=== PATIENT | male | born 1990 | race American Indian/Alaskan Native ===

== ENCOUNTER 2018-04-27 01:17 | Emergency (ER) | payer SELFPAY ==
[2018-04-27] MEDS ORDERED: ASPIRIN PO ONE (01:52)
[2018-04-27 02:16] LABS: Basophils % (Auto) 0.3 % (0.0-1.8); Eosinophils # (Auto) 0.1 K/mm3 (0.0-0.4); Eosinophils % (Auto) 2.1 % (0.0-4.3); Hematocrit 42.9 % (35.5-45.6); Hemoglobin 14.7 gm/dl (11.8-15.2); Lymphocytes # (Auto) 1.6 K/mm3 (1.2-5.4); Lymphocytes % (Auto) 32.6 % (13.4-35.0); Mean Corpuscular HGB Conc 34 % (32-34); Mean Corpuscular Hemoglobin 31 pg (28-32); Mean Corpuscular Volume 90 fl (84-94); Monocytes # (Auto) 0.4 K/mm3 (0.0-0.8); Monocytes % (Auto) 8.3 % (0.0-7.3); Platelet Count 287 K/mm3 (140-440); Red Blood Count 4.78 M/mm3 (3.65-5.03); Red Cell Distribution Width 13.1 % (13.2-15.2)
[2018-04-27 02:43] LABS: BUN/Creatinine Ratio 13; Blood Urea Nitrogen 12 mg/dL (9-20); Calcium 9.2 mg/dL (8.4-10.2); Hemolysis Index 6
[2018-04-27 03:45] VITALS: BP 135/80
--- NOTE | 2018-04-27 03:53 | Emergency Department Report ---
HPI - General Chief Complaint: Chest Pain Time Seen by Provider: 04/27/18 03:52 - HPI HPI: The patient is 27-year-old male presents for evaluation of chest pain. The patient reports left-sided chest pain for the past month, moderate in severity, sharp in quality, exacerbated with movement the left arm at the shoulder joint. The patient denies Trauma to the chest, neck, or left shoulder, fever, neck pain , parasthesias, dyspnea, cough, hemoptysis, palpitations, dizziness, syncope, unilateral leg swelling, calf muscle pain. Patient also denies cocaine or other stimulant use, history of DVT or PE, recent immobilization, or history of cancer. ED Past Medical Hx - Past Medical History Previous Medical History?: No - Surgical History Past Surgical History?: No - Social History Smoking Status: Current Every Day Smoker Substance Use Type: None - Medications Home Medications: Home Medications Medication Instructions Recorded Confirmed Last Taken Type Ibuprofen [Motrin] 800 mg PO Q8HR PRN #15 tablet 04/27/18 Unknown Rx traMADol [Ultram 50 MG tab] 50 mg PO Q6HR PRN #12 tablet 04/27/18 Unknown Rx ED Review of Systems ROS: Stated complaint: CHEST PAIN Other details as noted in HPI Constitutional: denies: fever ENT: denies: throat or neck pain Respiratory: denies: cough, shortness of breath Cardiovascular: reports: chest pain Endocrine: denies unexplained weight loss or gain Gastrointestinal: denies: abdominal pain, nausea Genitourinary: denies: dysuria Musculoskeletal: denies: leg swelling Skin: denies: rash Neurological: denies: headache Hematological/Lymphatic: denies: easy bleeding or easy bruising Psych: denies sadness or hopelessness Physical Exam - Physical Exam Vital Signs: Vital Signs 04/27/18 04/27/18 04/27/18 01:17 01:46 03:43 Temperature 98.4 F 97.9 F Pulse Rate 61 61 61 Respiratory 16 18 Rate Blood Pressure 134/65 134/65 Blood Pressure 135/80 [Left] O2 Sat by Pulse 97 100 99 Oximetry Physical Exam: General: well-nourished, well-developed, no acute distress Head: Normocephalic, atraumatic Eyes: normal sclera ENT: Mucous membranes are pink and moist Neck: trachea midline, neck supple, No neck stiffness, no cervical adenopathy Respiratory: Breath sounds equal bilaterally, no wheezing, rales, or rhonchi Cardio: S1 and S2 present, no murmurs, rubs, gallops, capillary refill is brisk Abdomen: Normoactive bowel sounds, soft abdomen, no rigidity, no guarding or rebound tenderness Chest WALL/Back: No tenderness to palpation of the chest wall, no CVA tenderness with percussion, chest pain reproduced with abduction and internal rotation of the left arm at the shoulder joint Musc: No pitting edema Skin: No rash Neuro: no facial drooping, normal speech Psych: Normal affect ED Course Vital Signs 04/27/18 04/27/18 04/27/18 01:17 01:46 03:43 Temperature 98.4 F 97.9 F Pulse Rate 61 61 61 Respiratory 16 18 Rate Blood Pressure 134/65 134/65 Blood Pressure 135/80 [Left] O2 Sat by Pulse 97 100 99 Oximetry ED Medical Decision Making - Lab Data Result diagrams: 04/27/18 01:56 04/27/18 01:56 - Medical Decision Making The patient was seen and examined by myself. The patient is placed on a court recording monitor and continuous pulse ox. On initial evaluation, the patient was found to be in no distress. EKG was negative for findings suggestive of acute cardiac infarct. Labs and imaging are obtained. The patient is given a tablet of Motrin for his pain. Chest x-ray is negative for pneumothorax, focal consolidation, pulmonary vascular congestion, pleural effusion, or other obvious acute cardiopulmonary disease process. Lab results were non-concerning including levels of troponin, WBC, hemoglobin, hematocrit, electrolytes, renal function. The patient was reevaluated and reported that their symptoms were markedly improved. As the patient has a KAREEN risk score less than 2, and a well's score less than 2, the patient is at low risk of ACS or pulmonary emboli etiology of their symptoms. The patient is stable for discharge with outpatient follow-up. The patient is given follow-up and return instructions. The patient expressed understanding and agreed with the plan. The patient is discharged in stable condition. Critical care attestation.: If time is entered above; I have spent that time in minutes in the direct care of this critically ill patient, excluding procedure time. ED Disposition Clinical Impression: Acute chest pain, Chest wall pain Disposition: - TO HOME OR SELFCARE Is pt being admited?: No Does the pt Need Aspirin: No Condition: Stable Instructions: Chest Pain (ED), Costochondritis (ED) Referrals: [facility] [Outside] - 3-5 Days Time of Disposition: 04:46
--- NOTE | 2018-04-27 04:21 | XRay Report ---
FINAL REPORT PROCEDURE: XR CHEST 1V AP TECHNIQUE: Chest radiograph anteroposterior view. CPT 89811 HISTORY: chest pain COMPARISON: No prior studies are available for comparison. FINDINGS: Heart: Normal. Mediastinum/Vessels: Normal. Lungs/Pleural space: Normal. Bony thorax: No acute osseous abnormality. Life support devices: None. IMPRESSION: No acute cardiopulmonary abnormality.
[2018-04-27] MEDS ORDERED: TORADOL IM ONE (04:46)
[2018-04-27] MEDS ORDERED: MOTRIN PO ONE (04:47)
== END 2018-04-27 04:55 | disposition home or self-care (01) ==
LOC: ED 01:17
DX: R07.89 Other chest pain (principal); F17.200 Nicotine dependence, unspecified, uncomplicated
CPT/HCPCS: 36415; 71045; 80048; 84484; 85025; 93005; 93010

== ENCOUNTER 2019-04-27 17:13 | Emergency (ER) | payer SELFPAY ==
--- NOTE | 2019-04-27 17:19 | Emergency Department Report ---
Blank Doc - Documentation Documentation: 28 y/o c/o of 2 day history of lower abdominal aching pain and nausea with aches and malaise. no diarrhea or constipation no trauma. Plan labs and urine. abdominal series
[2019-04-27 17:58] LABS: Hematocrit 47.9 % (35.5-45.6); Hemoglobin 16.4 gm/dl (11.8-15.2); Mean Corpuscular HGB Conc 34 % (32-34); Mean Corpuscular Volume 91 fl (84-94); Platelet Count 297 K/mm3 (140-440); Red Blood Count 5.24 M/mm3 (3.65-5.03); Red Cell Distribution Width 13.4 % (13.2-15.2)
--- NOTE | 2019-04-27 18:03 | XRay Report ---
PROCEDURE: XR ABD SERIES W CXR 1V TECHNIQUE: Abdomen, supine and upright views. Frontal chest, single view HISTORY: lower abdominal pain COMPARISONS: Frontal chest 04/27/2018 Slight spinal curvature with right apex at thoracolumbar junction. Clear lungs bilaterally. Normal cardiac silhouette size. Colonic fecal content is prominent from cecum to rectum which may reflect constipation. Nonspecific nonobstructive bowel gas pattern without intestinal distention. There is no definite pneumoperitoneum or abnormal air-fluid level on the upright views. No evidence of visceromegaly or mass. No radiographically visible calcification of urologic significance. IMPRESSION: Prominent stool from cecum to rectum may reflect constipation This document is electronically signed by Jamaal Mclaughlin MD., April 27 2019 06:01:30 PM ET
[2019-04-27 18:12] LABS: Alanine Aminotransferase 7 units/L (7-56); Albumin 4.6 g/dL (3.9-5); BUN/Creatinine Ratio 8; Blood Urea Nitrogen 7 mg/dL (9-20); Calcium 9.8 mg/dL (8.4-10.2); Hemolysis Index 5
[2019-04-27 19:45] LABS: Basophils % (Manual) 0 % (0.0-1.8); Total Cells Counted 100
[2019-04-27 19:46] LABS: RBC Morphology Normal
[2019-04-27 20:04] LABS: Bilirubin,Urine NEG (Negative); Blood,Urine SM (Negative); Color,Urine Yellow (Yellow); Mucus,Urine 1+ /HPF; Protein,Urine <15 mg/dL mg/dL (Negative); WBC,Urine < 1.0 /HPF (0.0-6.0)
[2019-04-27] MEDS ORDERED: ZOFRAN ODT PO ONE (20:07)
--- NOTE | 2019-04-27 20:12 | Emergency Department Report ---
ED Abdominal Pain HPI - General Chief Complaint: Abdominal Pain Stated Complaint: BODY PAIN Time Seen by Provider: 04/27/19 17:17 Source: patient Mode of arrival: Ambulatory Limitations: No Limitations - History of Present Illness Initial Comments: 28 y/o c/o of 2 day history of lower abdominal aching pain and nausea with aches and malaise. no diarrhea or constipation no trauma. pain is 4/10 nagging started after eating chicken from [place] [employer] 2 days ago there is no fever no chills no cp no sob. pt is tolerating po intake Complaint: abdominal pain Onset/Timin -: days(s) Location: periumbilical Radiation: LLQ Migration to: LLQ Severity: moderate Severity scale (0 -10): 3 Quality: cramping Consistency: intermittent Improves With: nothing Worsens With: movement Associated Symptoms: nausea, constipation. denies: vomiting, diarrhea, dysuria, melena - Related Data Previous Rx's Medication Instructions Recorded Last Taken Type Ibuprofen [Motrin] 800 mg PO Q8HR PRN #15 tablet 04/27/18 Unknown Rx traMADol [Ultram 50 MG tab] 50 mg PO Q6HR PRN #12 tablet 04/27/18 Unknown Rx Bisacodyl [Dulcolax suppos] 10 mg SD QDAY PRN #5 supp.rect 04/27/19 Unknown Rx Polyethylene Glycol 3350 [Miralax 17 gm PO BID PRN #14 packet 04/27/19 Unknown Rx 3350] Allergies Allergy/AdvReac Type Severity Reaction Status Date / Time No Known Allergies Allergy Verified 04/27/19 17:14 ED Review of Systems ROS: Stated complaint: BODY PAIN Other details as noted in HPI Constitutional: denies: chills, fever Eyes: denies: eye pain, eye discharge, vision change ENT: denies: ear pain, throat pain Respiratory: denies: cough, shortness of breath, wheezing Cardiovascular: denies: chest pain, palpitations Endocrine: no symptoms reported Gastrointestinal: abdominal pain, nausea, constipation. denies: vomiting, diarrhea, hematemesis, melena, hematochezia Genitourinary: denies: urgency, dysuria Musculoskeletal: denies: back pain, joint swelling, arthralgia Skin: denies: rash, lesions Neurological: denies: headache, weakness, paresthesias Psychiatric: denies: anxiety, depression Hematological/Lymphatic: denies: easy bleeding, easy bruising ED Past Medical Hx - Past Medical History Previous Medical History?: No - Surgical History Past Surgical History?: No - Social History Smoking Status: Current Every Day Smoker Substance Use Type: Alcohol - Medications Home Medications: Home Medications Medication Instructions Recorded Confirmed Last Taken Type Ibuprofen [Motrin] 800 mg PO Q8HR PRN #15 tablet 04/27/18 Unknown Rx traMADol [Ultram 50 MG tab] 50 mg PO Q6HR PRN #12 tablet 04/27/18 Unknown Rx Bisacodyl [Dulcolax suppos] 10 mg SD QDAY PRN #5 supp.rect 04/27/19 Unknown Rx Polyethylene Glycol 3350 [Miralax 17 gm PO BID PRN #14 packet 04/27/19 Unknown Rx 3350] ED Physical Exam - General Limitations: No Limitations General appearance: alert, in no apparent distress - Head Head exam: Present: atraumatic, normocephalic - Eye Eye exam: Present: normal appearance, PERRL, EOMI Pupils: Present: normal accommodation - ENT ENT exam: Present: mucous membranes moist - Neck Neck exam: Present: normal inspection - Respiratory Respiratory exam: Present: normal lung sounds bilaterally. Absent: respiratory distress, wheezes, stridor, chest wall tenderness - Cardiovascular Cardiovascular Exam: Present: regular rate, normal rhythm, normal heart sounds. Absent: systolic murmur, diastolic murmur, rubs, gallop - GI/Abdominal GI/Abdominal exam: Present: distended, tenderness (mild tenderness periumbilical firm no rebound no guarding ), normal bowel sounds. Absent: guarding, rebound, rigid, bruit, hernia - Rectal Rectal exam: Present: deferred - Extremities Exam Extremities exam: Present: normal inspection - Back Exam Back exam: Present: normal inspection, full ROM. Absent: tenderness, CVA tenderness (R), rash noted - Neurological Exam Neurological exam: Present: alert, oriented X3, CN II-XII intact, normal gait, reflexes normal - Psychiatric Psychiatric exam: Present: normal affect, normal mood - Skin Skin exam: Present: warm, dry, intact, normal color. Absent: rash ED Course Vital Signs 04/27/19 04/27/19 17:18 17:36 Temperature 98.4 F 98.5 F Pulse Rate 71 71 Respiratory 16 18 Rate Blood Pressure 134/90 Blood Pressure 134/90 [Left] O2 Sat by Pulse 100 98 Oximetry ED Medical Decision Making - Lab Data Result diagrams: 04/27/19 17:34 04/27/19 17:34 Lab Results 04/27/19 04/27/19 04/27/19 Range/Units 17:34 17:34 19:30 WBC 5.2 (4.5-11.0) K/mm3 RBC 5.24 H (3.65-5.03) M/mm3 Hgb 16.4 H (11.8-15.2) gm/dl Hct 47.9 H (35.5-45.6) % MCV 91 (84-94) fl MCH 31 (28-32) pg MCHC 34 (32-34) % RDW 13.4 (13.2-15.2) % Plt Count 297 (140-440) K/mm3 Add Manual Diff Complete Total Counted 100 Seg Neuts % (Manual) 49.0 (40.0-70.0) % Band Neutrophils % 0 % Lymphocytes % (Manual) 38.0 H (13.4-35.0) % Reactive Lymphs % (Man) 0 % Monocytes % (Manual) 10.0 H (0.0-7.3) % Eosinophils % (Manual) 3.0 (0.0-4.3) % Basophils % (Manual) 0 (0.0-1.8) % Metamyelocytes % 0 % Myelocytes % 0 % Promyelocytes % 0 % Blast Cells % 0 % Nucleated RBC % Not Reportable Seg Neutrophils # Man 2.5 (1.8-7.7) K/mm3 Band Neutrophils # 0.0 K/mm3 Lymphocytes # (Manual) 2.0 (1.2-5.4) K/mm3 Abs React Lymphs (Man) 0.0 K/mm3 Monocytes # (Manual) 0.5 (0.0-0.8) K/mm3 Eosinophils # (Manual) 0.2 (0.0-0.4) K/mm3 Basophils # (Manual) 0.0 (0.0-0.1) K/mm3 Metamyelocytes # 0.0 K/mm3 Myelocytes # 0.0 K/mm3 Promyelocytes # 0.0 K/mm3 Blast Cells # 0.0 K/mm3 WBC Morphology Not Reportable Hypersegmented Neuts Not Reportable Hyposegmented Neuts Not Reportable Hypogranular Neuts Not Reportable Smudge Cells Not Reportable Toxic Granulation Not Reportable Toxic Vacuolation Not Reportable Dohle Bodies Not Reportable Pelger-Huet Anomaly Not Reportable Humza Rods Not Reportable Platelet Estimate Appears normal Clumped Platelets Not Reportable Plt Clumps, EDTA Not Reportable Large Platelets Not Reportable Giant Platelets Not Reportable Platelet Satelliting Not Reportable Plt Morphology Comment Not Reportable RBC Morphology Normal Dimorphic RBCs Not Reportable Polychromasia Not Reportable Hypochromasia Not Reportable Poikilocytosis Not Reportable Anisocytosis Not Reportable Microcytosis Not Reportable Macrocytosis Not Reportable Spherocytes Not Reportable Pappenheimer Bodies Not Reportable Sickle Cells Not Reportable Target Cells Not Reportable Tear Drop Cells Not Reportable Ovalocytes Not Reportable Helmet Cells Not Reportable Yun-Barnum Bodies Not Reportable Laveen Rings Not Reportable Chi Cells Not Reportable Bite Cells Not Reportable Crenated Cell Not Reportable Elliptocytes Not Reportable Acanthocytes (Spur) Not Reportable Rouleaux Not Reportable Hemoglobin C Crystals Not Reportable Schistocytes Not Reportable Malaria parasites Not Reportable Jorge A Bodies Not Reportable Hem Pathologist Commnt No Sodium 143 (137-145) mmol/L Potassium 4.1 (3.6-5.0) mmol/L Chloride 104.8 (98-107) mmol/L Carbon Dioxide 27 (22-30) mmol/L Anion Gap 15 mmol/L BUN 7 L (9-20) mg/dL Creatinine 0.9 (0.8-1.5) mg/dL Estimated GFR > 60 ml/min BUN/Creatinine Ratio 8 % Glucose 72 L (75-100) mg/dL Calcium 9.8 (8.4-10.2) mg/dL Total Bilirubin 0.20 (0.1-1.2) mg/dL AST 17 (5-40) units/L ALT 7 (7-56) units/L Alkaline Phosphatase 83 (35-129) units/L Total Protein 7.9 (6.3-8.2) g/dL Albumin 4.6 (3.9-5) g/dL Albumin/Globulin Ratio 1.4 % Lipase 19 (13-60) units/L Urine Bilirubin Neg (Negative) Urine RBC (Auto) 4.0 (0.0-6.0) /HPF U Epithel Cells (Auto) < 1.0 (0-13.0) /HPF - Radiology Data Radiology results: report reviewed, image reviewed Ordering Physician: MADONNA VORA Date of Service: 04/27/19 Procedure(s): XR abd series w cxr 1V Accession Number(s): [id number] cc: MADONNA VORA Fluoro Time In Minutes: PROCEDURE: XR ABD SERIES W CXR 1V TECHNIQUE: Abdomen, supine and upright views. Frontal chest, single view HISTORY: lower abdominal pain COMPARISONS: Frontal chest 04/27/2018 Slight spinal curvature with right apex at thoracolumbar junction. Clear lungs bilaterally. Normal cardiac silhouette size. Colonic fecal content is prominent from cecum to rectum which may reflect constipation. Nonspecific nonobstructive bowel gas pattern without intestinal distention. There is no definite pneumoperitoneum or abnormal air-fluid level on the upright views. No evidence of visceromegaly or mass. No radiographically visible calcification of urologic significance. IMPRESSION: Prominent stool from cecum to rectum may reflect constipation This document is electronically signed by Jamaal Mclaughlin MD., April 27 2019 06:01:30 PM ET Transcribed By: ANGEL Dictated By: JAMAAL MCLAUGHLIN MD Electronically Authenticated By: JAMAAL MCLAUGHLIN MD Signed Date/Time: 04/27/19 180 DD/ 33 TD/TT: 04/27/19 173 - Medical Decision Making X-ray demonstrates a moderate constipation same thing. Physical exam shows patient is tolerating by mouth intake plan MiraLAX and Dulcolax suppository hydrate as directed follow with PCP in 3 days or return to ED should symptoms worsen patient is stable condition at this time Critical care attestation.: If time is entered above; I have spent that time in minutes in the direct care of this critically ill patient, excluding procedure time. ED Disposition Clinical Impression: Constipation Qualifiers: Constipation type: other constipation type Qualified Code(s): K59.09 - Other constipation Disposition: DC-01 TO HOME OR SELFCARE Is pt being admited?: No Does the pt Need Aspirin: No Condition: Stable Instructions: Constipation (ED), High Fiber Diet (ED) Prescriptions: Bisacodyl [Dulcolax suppos] 10 mg SD QDAY PRN #5 supp.rect PRN Reason: Constipation Polyethylene Glycol 3350 [Miralax 3350] 17 gm PO BID PRN #14 packet PRN Reason: Constipation Referrals: LEILANI RODRÍGUEZ MD [Primary Care Provider] - 3-5 Days Forms: Work/School Release Form(ED) Time of Disposition: 20:17
[2019-04-27 20:49] VITALS: BP 145/87
== END 2019-04-27 20:49 | disposition home or self-care (01) ==
LOC: ED 17:13
DX: K59.09 Other constipation (principal)
CPT/HCPCS: 36415; 74022; 80053; 81001; 83690; 85007; 85025; Q0162

== ENCOUNTER 2020-08-17 19:43 | Emergency (ER) | payer SELFPAY ==
[2020-08-17 20:13] VITALS: BP 165/88
--- NOTE | 2020-08-17 22:58 | Emergency Department Report ---
ED Lower Extremity HPI - General Chief Complaint: Extremity Injury, Lower Stated Complaint: LEFT LEG PAIN Time Seen by Provider: 08/17/20 22:35 Source: patient Mode of arrival: Ambulatory Limitations: No Limitations - History of Present Illness Initial Comments: 29-year-old male presents to ED with left knee pain. Patient states he had a "wild weekend" this past weekend. States he does not know if he fell or injured his knee, however he reports worsening since yesterday. States pain is mostly located in the medial aspect of the knee and radiates down into the leg. Patient is ambulatory. He denies any swelling. MD Complaint: knee injury -: days(s) (2) Injury: Knee: Left Type of Injury: unknown Severity: mild Improves With: immobilization Worsens With: weight bearing, palpation Context: other (Unknown) Associated Symptoms: ambulatory. denies: swelling - Related Data Previous Rx's Medication Instructions Recorded Last Taken Type Ibuprofen [Motrin] 800 mg PO Q8HR PRN #15 tablet 04/27/18 Unknown Rx traMADoL [Ultram 50 MG tab] 50 mg PO Q6HR PRN #12 tablet 04/27/18 Unknown Rx bisacodyL [Dulcolax suppos] 10 mg [place] QDAY PRN #5 supp.rect 04/27/19 Unknown Rx polyethylene glycoL 3350 [Miralax 17 gm PO BID PRN #14 packet 04/27/19 Unknown Rx 3350] Naproxen [Naprosyn] 500 mg PO BID #20 tablet 08/17/20 Unknown Rx Allergies Allergy/AdvReac Type Severity Reaction Status Date / Time No Known Allergies Allergy Verified 04/27/19 17:14 ED Review of Systems ROS: Stated complaint: LEFT LEG PAIN Other details as noted in HPI Comment: All other systems reviewed and negative Musculoskeletal: as per HPI Neurological: denies: weakness, numbness, paresthesias ED Past Medical Hx - Past Medical History Previous Medical History?: No - Surgical History Past Surgical History?: No - Social History Smoking Status: Never Smoker Substance Use Type: Alcohol - Medications Home Medications: Home Medications Medication Instructions Recorded Confirmed Last Taken Type Ibuprofen [Motrin] 800 mg PO Q8HR PRN #15 tablet 04/27/18 Unknown Rx traMADoL [Ultram 50 MG tab] 50 mg PO Q6HR PRN #12 tablet 04/27/18 Unknown Rx bisacodyL [Dulcolax suppos] 10 mg NV QDAY PRN #5 supp.rect 04/27/19 Unknown Rx polyethylene glycoL 3350 [Miralax 17 gm PO BID PRN #14 packet 04/27/19 Unknown Rx 3350] Naproxen [Naprosyn] 500 mg PO BID #20 tablet 08/17/20 Unknown Rx ED Physical Exam - General Limitations: No Limitations General appearance: alert, in no apparent distress - Head Head exam: Present: atraumatic, normocephalic - Eye Eye exam: Present: normal appearance, EOMI - ENT ENT exam: Present: mucous membranes moist - Neck Neck exam: Present: normal inspection - Respiratory Respiratory exam: Absent: respiratory distress - Cardiovascular Cardiovascular Exam: Present: regular rate, normal rhythm - GI/Abdominal GI/Abdominal exam: Absent: distended - Extremities Exam Extremities exam: Present: other (Tenderness to the medial aspect of the left knee; no deformity or swelling present; joint is stable; range of motion intact) - Neurological Exam Neurological exam: Present: alert, oriented X3. Absent: motor sensory deficit - Psychiatric Psychiatric exam: Present: normal affect, normal mood - Skin Skin exam: Present: warm, dry, intact, normal color ED Course Vital Signs 08/17/20 20:13 Temperature 98.3 F Pulse Rate 89 Respiratory 17 Rate Blood Pressure 165/88 O2 Sat by Pulse 97 Oximetry ED Lower Extremity MDM - Medical Decision Making 29-year-old male with likely injury to his left knee while he was intoxicated. Patient is ambulatory. There is slight tenderness to the medial aspect of the knee, however there is no deformity, swelling, bruising present. Patient will be given an Erick wrap. This is likely a sprain. Patient will be discharged with anti-inflammatories. Outpatient follow-up advised. Return precautions given. - Differential Diagnosis Knee sprain Critical care attestation.: If time is entered above; I have spent that time in minutes in the direct care of this critically ill patient, excluding procedure time. ED Disposition Clinical Impression: Left knee sprain Disposition: - TO HOME OR SELFCARE Is pt being admited?: No Condition: Stable Instructions: Knee Sprain (ED) Prescriptions: Naproxen [Naprosyn] 500 mg PO BID #20 tablet Referrals: BRENDEN ROSEN MD [Staff Physician] - as needed Time of Disposition: 22:59
== END 2020-08-17 23:24 | disposition home or self-care (01) ==
LOC: ED 19:43
DX: S83.8X2A Sprain of other specified parts of left knee, initial encounter (principal); X58.XXXA Exposure to other specified factors, initial encounter; Y93.89 Activity, other specified; Y92.89 Other specified places as the place of occurrence of the external cause; Y99.8 Other external cause status
CPT/HCPCS: 99282

== ENCOUNTER 2021-02-08 10:41 | Emergency (ER) | payer BC ==
[2021-02-08 10:52] VITALS: BP 164/82
--- NOTE | 2021-02-08 12:18 | XRay Report ---
CHEST 2 VIEWS INDICATION: cough x2 weeks. COMPARISON: 04/27/2018 FINDINGS: Support devices: None. Heart: Within normal limits. Lungs/pleura: No acute air space or interstitial disease. No pneumothorax. Additional findings: None. IMPRESSION: Normal chest x-ray Signer Name: Roverto Lane Jr, MD Signed: 02/08/2021 12:14 PM Workstation Name: [id number]
--- NOTE | 2021-02-08 12:33 | Emergency Department Report ---
- General Chief Complaint: Upper Respiratory Infection Stated Complaint: CHEST PAIN Time Seen by Provider: 02/08/21 11:13 Source: patient Mode of arrival: Ambulatory Limitations: No Limitations - History of Present Illness Initial Comments: Patient is a 30-year-old male presents emergency room complaints of a dry cough that began 2 weeks ago. He states that he just stopped smoking approximately 2 weeks ago. He states he has chest discomfort after frequent coughing. He denies any fever, nausea, vomiting, diarrhea, shortness of breath, wheezing. He denies any sick contacts or recent travel. No past medical history. No allergies to medications. - Related Data Previous Rx's Medication Instructions Recorded Last Taken Type Ibuprofen [Motrin] 800 mg PO Q8HR PRN #15 tablet 04/27/18 Unknown Rx traMADoL [Ultram 50 MG tab] 50 mg PO Q6HR PRN #12 tablet 04/27/18 Unknown Rx bisacodyL [Dulcolax suppos] 10 mg SD QDAY PRN #5 supp.rect 04/27/19 Unknown Rx polyethylene glycoL 3350 [Miralax 17 gm PO BID PRN #14 packet 04/27/19 Unknown Rx 3350] Naproxen [Naprosyn] 500 mg PO BID #20 tablet 08/17/20 Unknown Rx Benzonatate [Tessalon Perles] 100 mg PO Q8HR PRN #12 capsule 02/08/21 Unknown Rx Loratadine [Claritin] 10 mg PO DAILY #10 tablet 02/08/21 Unknown Rx Prednisone [predniSONE 10 mg 10 mg PO .TAPER #1 tab.ds.pk 02/08/21 Unknown Rx (6-Day Pack, 21 Tabs)] Allergies Allergy/AdvReac Type Severity Reaction Status Date / Time No Known Allergies Allergy Verified 02/08/21 10:46 ED Review of Systems ROS: Stated complaint: CHEST PAIN Other details as noted in HPI Comment: All other systems reviewed and negative ED Past Medical Hx - Past Medical History Additional medical history: BRONCHITIS - Surgical History Past Surgical History?: No - Social History Smoking Status: Former Smoker Substance Use Type: Alcohol - Medications Home Medications: Home Medications Medication Instructions Recorded Confirmed Last Taken Type Ibuprofen [Motrin] 800 mg PO Q8HR PRN #15 tablet 04/27/18 Unknown Rx traMADoL [Ultram 50 MG tab] 50 mg PO Q6HR PRN #12 tablet 04/27/18 Unknown Rx bisacodyL [Dulcolax suppos] 10 mg SD QDAY PRN #5 supp.rect 04/27/19 Unknown Rx polyethylene glycoL 3350 [Miralax 17 gm PO BID PRN #14 packet 04/27/19 Unknown Rx 3350] Naproxen [Naprosyn] 500 mg PO BID #20 tablet 08/17/20 Unknown Rx Benzonatate [Tessalon Perles] 100 mg PO Q8HR PRN #12 capsule 02/08/21 Unknown Rx Loratadine [Claritin] 10 mg PO DAILY #10 tablet 02/08/21 Unknown Rx Prednisone [predniSONE 10 mg 10 mg PO .TAPER #1 tab.ds.pk 02/08/21 Unknown Rx (6-Day Pack, 21 Tabs)] ED Physical Exam - General Limitations: No Limitations General appearance: alert, in no apparent distress - Head Head exam: Present: atraumatic, normocephalic - Eye Eye exam: Present: normal appearance - ENT ENT exam: Present: mucous membranes moist - Respiratory Respiratory exam: Present: normal lung sounds bilaterally. Absent: respiratory distress, wheezes, rales, rhonchi, stridor, chest wall tenderness, accessory muscle use, decreased breath sounds, prolonged expiratory - Cardiovascular Cardiovascular Exam: Present: regular rate, normal rhythm, normal heart sounds. Absent: systolic murmur, diastolic murmur, rubs, gallop - Neurological Exam Neurological exam: Present: alert, oriented X3 - Psychiatric Psychiatric exam: Present: normal affect, normal mood - Skin Skin exam: Present: warm, dry, intact ED Course Vital Signs 02/08/21 10:51 Temperature 98.8 F Pulse Rate 76 Respiratory 20 Rate Blood Pressure 164/82 O2 Sat by Pulse 96 Oximetry ED Medical Decision Making - Radiology Data Radiology results: report reviewed Ordering Physician: MADONNA BRIGGS Date of Service: 02/08/21 Procedure(s): XR chest routine 2V Accession Number(s): [id number] cc: MADONNA BRIGGS Fluoro Time In Minutes: CHEST 2 VIEWS INDICATION: cough x2 weeks. COMPARISON: 04/27/2018 FINDINGS: Support devices: None. Heart: Within normal limits. Lungs/pleura: No acute air space or interstitial disease. No pneumothorax. Additional findings: None. IMPRESSION: Normal chest x-ray Signer Name: Roverto Lane Jr, MD Signed: 02/08/2021 12:14 PM Workstation Name: [id number] Transcribed By: TTR Dictated By: ROVERTO LANE JR, MD Electronically Authenticated By: ROVERTO LANE JR, MD Signed Date/Time: 02/08/21 121 DD/ 1213 TD/TT: - Medical Decision Making Patient is a 30-year-old male presents emergency room complaints of a dry cough that began 2 weeks ago. He states that he just stopped smoking approximately 2 weeks ago. He states he has chest discomfort after frequent coughing. He denies any fever, nausea, vomiting, diarrhea, shortness of breath, wheezing. He denies any sick contacts or recent travel. No past medical history. No allergies to medications. Vitals are stable. Breath sounds are clear bilaterally, no wheezing, no rales, no rhonchi. Chest x-ray: Normal chest x- ray. Patient has no clinical signs of bacterial pneumonia or bacterial bronchitis, no fever, no shortness of breath, no abnormal lung sounds, chest x- ray is clear, he has no productive cough. Patient can prescription for Claritin, prednisone, Tessalon Perles. Advised patient Please take medication as prescribed. Please follow-up with your primary care doctor. Return to emergency room for any worsening symptoms. Please do not smoke. Critical care attestation.: If time is entered above; I have spent that time in minutes in the direct care of this critically ill patient, excluding procedure time. ED Disposition Clinical Impression: URI (upper respiratory infection) Qualifiers: URI type: unspecified URI Qualified Code(s): J06.9 - Acute upper respiratory infection, unspecified Disposition: DC-01 TO HOME OR SELFCARE Is pt being admited?: No Does the pt Need Aspirin: No Condition: Stable Instructions: Upper Respiratory Infection, Adult Additional Instructions: Please take medication as prescribed. Please follow-up with your primary care doctor. Return to emergency room for any worsening symptoms. Please do not smoke. Your chest x-ray is normal Prescriptions: Loratadine [Claritin] 10 mg PO DAILY #10 tablet Prednisone [predniSONE 10 mg (6-Day Pack, 21 Tabs)] 10 mg PO .TAPER #1 tab.ds.pk Benzonatate [Tessalon Perles] 100 mg PO Q8HR PRN #12 capsule PRN Reason: cough Referrals: PRIMARY CAREMD [Primary Care Provider] - 3-5 Days [facility] [Provider Group] - 3-5 Days ASHA DO MD [Staff Physician] - 3-5 Days Forms: Work/School Release Form(ED) Time of Disposition: 12:31 Print Language: NEPALI
== END 2021-02-08 12:53 | disposition home or self-care (01) ==
LOC: ED 10:41
DX: J06.9 Acute upper respiratory infection, unspecified (principal); Z87.891 Personal history of nicotine dependence; Z79.899 Other long term (current) drug therapy
CPT/HCPCS: 71046; 99283

== ENCOUNTER 2021-10-14 08:57 | Emergency (ER) | payer SELFPAY ==
[2021-10-14] MEDS ORDERED: KETOROLAC 60 MG/2 ML INJ IM ONE (11:43)
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
[2021-10-14 14:39] VITALS: BP 136/75
== END 2021-10-14 14:40 | disposition home or self-care (01) ==
LOC: ED 08:57
DX: M54.50 Low back pain, unspecified (principal); Z87.891 Personal history of nicotine dependence
CPT/HCPCS: 72220; 96372; 99283; J1885